=== PATIENT | female | born 1975 | race Caucasian/White ===

== ENCOUNTER 2016-11-03 22:02 | Inpatient (IN) ==
[2016-11-03 23:10] LABS: Basophils % 0.3 %; Eosinophils # 0.2 K/mcL (0.0-0.6); Eosinophils % 2.9 %; Hematocrit 28.9 % (35.3-44.9); Hemoglobin 8.8 g/dL (11.5-15.4); Immature Granulocytes % 0.3 % (0-4); Lymphocytes # 1.4 K/mcL (0.6-4.6); Lymphocytes % 19.5 %; Mean Corpuscular HGB Conc 30.4 g/dL (31.6-35.5); Mean Corpuscular Hemoglobin 28.5 pg (28.0-33.3); Mean Corpuscular Volume 93.5 fL (83.0-100.0); Mean Platelet Volume 8.7 fL (9.4-12.4); Monocytes # 0.7 K/mcL (0.0-1.3); Monocytes % 10.5 %; Neutrophils # 4.6 K/mcL (1.6-8.9); Platelet Count 463 K/mcL (140-400); Red Blood Count 3.09 M/mcL (3.82-4.97); Red Cell Distribution Width 15.4 % (11.5-14.5); Segmented Neutrophils % 66.5 %
[2016-11-03 23:17] LABS: Bilirubin,Urine Negative (Negative); Blood,Urine Moderate (Negative); Clarity,Urine Cloudy (Clear); Color,Urine Yellow (Yellow); Glucose,Urine (UA) Normal (Normal); Ketones,Urine Negative (Negative); Leukocyte Esterase,Urine Large (Negative); Nitrite,Urine Positive (Negative); Protein,Urine 100 mg/dL (Neg-Trace); Specific Gravity,Urine 1.029 (1.010-1.025); Urobilinogen,Urine Normal (Normal)
[2016-11-03 23:19] LABS: Bacteria,Urine Many per hpf (None-Few); Hyaline Casts,Urine None Seen per lpf (None-Few); Squamous Epithelial Cell,Urine Moderate per lpf (None-Few); WBC,Urine TNTC per hpf (0-3)
[2016-11-03 23:21] LABS: BUN/Creatinine Ratio 14 (6-26); Blood Urea Nitrogen 16 mg/dL (7-20); Calcium 9.1 mg/dL (8.6-10.8); Carbon Dioxide 26 mEq/L (19-29); Chloride 101 mEq/L (98-109); Glucose 105 mg/dL (70-99); Osmolality,Calculated 286 (280-300); Potassium 3.4 mEq/L (3.5-4.5); Sodium 137 mEq/L (136-145); eGFR For African Americans > 60 (> 60); eGFR For Non-African Americans 52 (> 60)
[2016-11-03 23:36] LABS: Mucus,Urine Few (Few)
[2016-11-03] MEDS ORDERED: *HR* Morphine 2 MG/ML SYRINGE IVP ONE (23:46)
[2016-11-03] MEDS ORDERED: Ondansetron 4 MG/2 ML VIAL IVP ONE (23:46)
--- NOTE | 2016-11-04 00:56 | Emergency Department Note ---
Disposition Clinical Impression: Flank pain Fever Qualifiers: Fever type: unspecified Qualified Code(s): R50.9 - Fever, unspecified UTI (urinary tract infection) Qualifiers: Urinary tract infection type: site unspecified Hematuria presence: without hematuria Qualified Code(s): N39.0 - Urinary tract infection, site not specified Disposition: Admitted As Inpatient Condition: Good Referrals: NONE,PCP [Primary Care Provider] - Forms: Work/School Release, ED Satisfaction Letter Fever HPI - General Chief Complaint: ED General Medical Stated Complaint: L flank drain site infected Time Seen by Provider: 11/03/16 22:43 Source: patient, family Mode of arrival: private vehicle Limitations: no limitations Nursing Notes Reviewed: Yes Vital Signs Reviewed: Yes - History of Present Illness Pt Subjective Complaint: fever, malaise, other (left flank pain) Onset (ago): day(s) Temperature Source: subjective Context: recent procedure/surgery (bilateral nephrostomy tubes placed in September) , on chemotherapy Associated symptoms: Reports: other (left flank pain). Denies: chills, rigors, myalgias, headache, rhinorrhea, nasal congestion, sore throat, stiff neck, cough , chest pain, dyspnea, abdominal pain, nausea, vomiting, diarrhea, dysuria, rash , altered mental status, night sweats, weight loss Improves with: nothing Worsens with: nothing Treatments prior to arrival fever: none - Related Data Home Medications Medication Instructions Recorded Confirmed No Known Home Drugs 11/04/16 11/04/16 Allergies Allergy/AdvReac Type Severity Reaction Status Date / Time No Known Allergies Allergy Verified 10/31/16 08:38 All systems ED: reviewed and negative except as stated. Constitutional: Reports: fever. Denies: chills, weakness, night sweats Cardiovascular: Denies: chest pain, palpitations, dyspnea on exertion Respiratory: Denies: cough, dyspnea, wheezes Gastrointestinal: Denies: abdominal pain, nausea, vomiting, diarrhea, constipation Genitourinary: Reports: other (increased sediment in nephrostomy tube of left kindey). 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 Absent: scleral icterus, conjunctival injection, periorbital swelling - ENT ENT exam: mucous membranes moist - Neck Neck exam: Present: normal inspection, full ROM, trachea midline. Absent: meningismus - Chest Chest inspection: Present: normal inspection - Respiratory Respiratory exam: Present: normal lung sounds bilaterally. Absent: respiratory distress, wheezes, stridor, accessory muscle use - Cardiovascular Cardiovascular exam: Present: regular rate, normal rhythm, normal heart sounds - Abdominal Exam Abdominal exam: Present: soft, Non-Tender. Absent: distention, guarding, rebound, hyperactive bowel sounds, organomegaly, mass, pulsatile mass - Extremities Exam Extremities exam: Present: normal inspection. Absent: pedal edema - Expanded Lower Extremity Exam Gait: observed and normal - Back Exam Back exam: Present: tenderness, CVA tenderness (L), paraspinal tenderness, other (bilateral nephrostomy tubes - no purulent drainage or erythema). Absent : muscle spasm, vertebral tenderness, sciatic notch tenderness (R), sciatic notch tenderness (L) - Neurological Exam Neurological exam: Present: alert, oriented X3, CN II-XII intact, normal gait - Psychiatric Psychiatric exam: Present: normal affect, normal mood - Skin Skin exam: Present: warm, dry, intact, normal color Course Course Narrative: Patient presents with flank pain and increased sediment in the urine of the left nephrostomy tube along with a fever and generalized malaise for over a day. 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 On exam, she is currently afebrile and does not appear toxic. She is resting but. She has had no nausea or vomiting. Urinalysis shows too numerous to count white blood cells , however, the sample was taken from the nephrostomy bag. Given the patient's recent placement of nephrostomy tubes along with flank pain and fever and concern for infection. Rocephin was given. Case was discussed with Dr. Boyer. She has had [id number] time with the patient and agrees with the assessment and plan to admit the patient. Vital Signs Temperature 97.7 F 11/03/16 22:23 Pulse Rate 90 11/03/16 22:23 Respiratory Rate 16 11/03/16 22:23 Blood Pressure 94/62 11/03/16 22:23 O2 Sat by Pulse Oximetry 97 11/03/16 22:23 Temperature 97.7 F 11/03/16 22:23 Pulse Rate 87 11/04/16 00:10 Respiratory Rate 18 11/04/16 00:10 Blood Pressure 97/53 11/04/16 00:10 O2 Sat by Pulse Oximetry 98 11/04/16 00:10 Oxygen Delivery Oxygen Delivery Room Air Fever - Medical Records Medical records reviewed: Yes I reviewed the patient's medical records. - Lab Data Lab results reviewed: Yes I reviewed the patient's lab results. Lab results narrative: Laboratory Last Values WBC 6.1 K/mcL (4.3-11.1) 11/04/16 04:50 RBC 3.13 M/mcL (3.82-4.97) L 11/04/16 04:50 Hgb 9.1 g/dL (11.5-15.4) L 11/04/16 04:50 Hct 29.7 % (35.3-44.9) L 11/04/16 04:50 MCV 94.9 fL (83.0-100.0) 11/04/16 04:50 MCH 29.1 pg (28.0-33.3) 11/04/16 04:50 MCHC 30.6 g/dL (31.6-35.5) L 11/04/16 04:50 RDW 15.5 % (11.5-14.5) H 11/04/16 04:50 Plt Count 447 K/mcL (140-400) H 11/04/16 04:50 MPV 9.2 fL (9.4-12.4) L 11/04/16 04:50 Immature Gran % 0.2 % (0-4) 11/04/16 04:50 Seg Neutrophils % 53.3 % 11/04/16 04:50 Lymphocytes % 29.9 % 11/04/16 04:50 Monocytes % 12.5 % 11/04/16 04:50 Eosinophils % 3.4 % 11/04/16 04:50 Basophils % 0.7 % 11/04/16 04:50 Neutrophils # 3.3 K/mcL (1.6-8.9) 11/04/16 04:50 Lymphocytes # 1.8 K/mcL (0.6-4.6) 11/04/16 04:50 Monocytes # 0.8 K/mcL (0.0-1.3) 11/04/16 04:50 Eosinophils # 0.2 K/mcL (0.0-0.6) 11/04/16 04:50 Basophils # 0.0 K/mcL (0.0-0.2) 11/04/16 04:50 Sodium 139 mEq/L (136-145) 11/04/16 04:50 Potassium 3.5 mEq/L (3.5-4.5) 11/04/16 04:50 Chloride 105 mEq/L (98-109) 11/04/16 04:50 Carbon Dioxide 27 mEq/L (19-29) 11/04/16 04:50 BUN 14 mg/dL (7-20) 11/04/16 04:50 Creatinine 1.03 mg/dL (0.57-1.11) 11/04/16 04:50 Est GFR ( Amer) > 60 (> 60) 11/04/16 04:50 Est GFR (Non-Af Amer) 59 (> 60) L 11/04/16 04:50 BUN/Creatinine Ratio 14 (6-26) 11/04/16 04:50 Glucose 77 mg/dL (70-99) 11/04/16 04:50 Calculated Osmolality 287 (280-300) 11/04/16 04:50 Lactic Acid 0.6 mmol/L (0.5-2.2) 11/04/16 04:50 Calcium 8.6 mg/dL (8.6-10.8) 11/04/16 04:50 Urine Color Yellow (Yellow) 11/03/16 23:04 Urine Clarity Cloudy (Clear) A 11/03/16 23:04 Urine pH 6.0 pH Units (5.0-8.0) 11/03/16 23:04 Ur Specific [place] 1.029 (1.010-1.025) H 11/03/16 23:04 Urine Protein 100 mg/dL (Neg-Trace) H 11/03/16 23:04 Urine Glucose (UA) Normal mg/dL (Normal) 11/03/16 23:04 Urine Ketones Negative mg/dL (Negative) 11/03/16 23:04 Urine Blood Moderate (Negative) H 11/03/16 23:04 Urine Nitrite Positive (Negative) A 11/03/16 23:04 Urine Bilirubin Negative (Negative) 11/03/16 23:04 Urine Urobilinogen Normal mg/dL (Normal) 11/03/16 23:04 Ur Leukocyte Esterase Large (Negative) H 11/03/16 23:04 Urine Microscopic RBC 5-15 per hpf (0-3) H 11/03/16 23:04 Urine Microscopic WBC TNTC per hpf (0-3) H 11/03/16 23:04 Ur Squamous Epith Cells Moderate per lpf (None-Few) H 11/03/16 23:04 Urine Bacteria Many per hpf (None-Few) H 11/03/16 23:04 Hyaline Casts None Seen per lpf (None-Few) 11/03/16 23:04 Urine Mucus Few (Few) 11/03/16 23:04 Ur Culture Indicated? YES (NO) A 11/03/16 23:04 Result diagrams: 11/03/16 23:01 11/03/16 23:01 Lab Results 11/03/16 11/03/16 11/03/16 Range/Units 23:01 23:01 23:01 WBC 7.0 (4.3-11.1) K/mcL RBC 3.09 L (3.82-4.97) M/mcL Hgb 8.8 L (11.5-15.4) g/dL Hct 28.9 L (35.3-44.9) % MCV 93.5 (83.0-100.0) fL MCH 28.5 (28.0-33.3) pg MCHC 30.4 L (31.6-35.5) g/dL RDW 15.4 H (11.5-14.5) % Plt Count 463 H (140-400) K/mcL MPV 8.7 L (9.4-12.4) fL Immature Gran % 0.3 (0-4) % Seg Neutrophils % 66.5 % Lymphocytes % 19.5 % Monocytes % 10.5 % Eosinophils % 2.9 % Basophils % 0.3 % Neutrophils # 4.6 (1.6-8.9) K/mcL Lymphocytes # 1.4 (0.6-4.6) K/mcL Monocytes # 0.7 (0.0-1.3) K/mcL Eosinophils # 0.2 (0.0-0.6) K/mcL Basophils # 0.0 (0.0-0.2) K/mcL Sodium 137 (136-145) mEq/L Potassium 3.4 L (3.5-4.5) mEq/L Chloride 101 (98-109) mEq/L Carbon Dioxide 26 (19-29) mEq/L BUN 16 (7-20) mg/dL Creatinine 1.15 H (0.57-1.11) mg/dL Est GFR ( Amer) > 60 (> 60) Est GFR (Non-Af Amer) 52 L (> 60) BUN/Creatinine Ratio 14 (6-26) Glucose 105 H (70-99) mg/dL Calculated Osmolality 286 (280-300) Lactic Acid 0.7 (0.5-2.2) mmol/L Calcium 9.1 (8.6-10.8) mg/dL Urine Color (Yellow) Urine Clarity (Clear) Urine pH (5.0-8.0) pH Units Ur Specific [place] (1.010-1.025) Urine Protein (Neg-Trace) mg/dL Urine Glucose (UA) (Normal) mg/dL Urine Ketones (Negative) mg/dL Urine Blood (Negative) Urine Nitrite (Negative) Urine Bilirubin (Negative) Urine Urobilinogen (Normal) mg/dL Ur Leukocyte Esterase (Negative) Urine Microscopic RBC (0-3) per hpf Urine Microscopic WBC (0-3) per hpf Ur Squamous Epith Cells (None-Few) per lpf Urine Bacteria (None-Few) per hpf Hyaline Casts (None-Few) per lpf Urine Mucus (Few) Ur Culture Indicated? (NO) 11/03/16 Range/Units 23:04 WBC (4.3-11.1) K/mcL RBC (3.82-4.97) M/mcL Hgb (11.5-15.4) g/dL Hct (35.3-44.9) % MCV (83.0-100.0) fL MCH (28.0-33.3) pg MCHC (31.6-35.5) g/dL RDW (11.5-14.5) % Plt Count (140-400) K/mcL MPV (9.4-12.4) fL Immature Gran % (0-4) % Seg Neutrophils % % Lymphocytes % % Monocytes % % Eosinophils % % Basophils % % Neutrophils # (1.6-8.9) K/mcL Lymphocytes # (0.6-4.6) K/mcL Monocytes # (0.0-1.3) K/mcL Eosinophils # (0.0-0.6) K/mcL Basophils # (0.0-0.2) K/mcL Sodium (136-145) mEq/L Potassium (3.5-4.5) mEq/L Chloride (98-109) mEq/L Carbon Dioxide (19-29) mEq/L BUN (7-20) mg/dL Creatinine (0.57-1.11) mg/dL Est GFR ( Amer) (> 60) Est GFR (Non-Af Amer) (> 60) BUN/Creatinine Ratio (6-26) Glucose (70-99) mg/dL Calculated Osmolality (280-300) Lactic Acid (0.5-2.2) mmol/L Calcium (8.6-10.8) mg/dL Urine Color Yellow (Yellow) Urine Clarity Cloudy A (Clear) Urine pH 6.0 (5.0-8.0) pH Units Ur Specific [place] 1.029 H (1.010-1.025) Urine Protein 100 H (Neg-Trace) mg/dL Urine Glucose (UA) Normal (Normal) mg/dL Urine Ketones Negative (Negative) mg/dL Urine Blood Moderate H (Negative) Urine Nitrite Positive A (Negative) Urine Bilirubin Negative (Negative) Urine Urobilinogen Normal (Normal) mg/dL Ur Leukocyte Esterase Large H (Negative) Urine Microscopic RBC 5-15 H (0-3) per hpf Urine Microscopic WBC TNTC H (0-3) per hpf Ur Squamous Epith Cells Moderate H (None-Few) per lpf Urine Bacteria Many H (None-Few) per hpf Hyaline Casts None Seen (None-Few) per lpf Urine Mucus Few (Few) Ur Culture Indicated? YES A (NO) - Radiology Data Radiology results reviewed: Yes I reviewed the patient's radiology results. Abdomen/Pelvis CT 11/04/16 00:52 IMPRESSION: Intact nephrostomy tubes in appropriate position, with improved right-sided hydronephrosis compared to the previous examination. There is a nonobstructive calculus in the lower pole the left kidney. The cervical mass is seen in the pelvis, though better identified on the recent MRI study performed at an outside hospital. No other acute process. D/ / Rock Meraz MD / Rock Meraz MD Interpreting Provider: Rock Meraz MD
[2016-11-04] MEDS ORDERED: 0.9 % Sodium Chloride 1,000 ML IVC ONE (02:38)
--- NOTE | 2016-11-04 03:15 | Emergency Department Note ---
Disposition Clinical Impression: Complicated UTI (urinary tract infection) Disposition: Admitted As Inpatient Time of Disposition: 04:20 General Adult HPI - General Chief complaint: ED General Medical Stated complaint: L flank drain site infected Time Seen by Provider: 11/03/16 22:43 Source: patient, family Mode of arrival: private vehicle Limitations: no limitations - History of Present Illness Pain Scale: 9 - Related Data Home Medications Medication Instructions Recorded Confirmed No Known Home Drugs 11/04/16 11/04/16 Allergies Allergy/AdvReac Type Severity Reaction Status Date / Time No Known Allergies Allergy Verified 10/31/16 08:38 Past Medical History - Past Medical History Medical history: Reports: no medical history, cancer, other Psychiatric history: Reports: no psych history 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 - Social History Smoking Status: Current every day smoker Smokeless Tobacco Status: No Alcohol use: Reports: none Drug use: Reports: marijuana Physical Exam - General Limitations: no limitations General appearance: alert, in no apparent distress Course Vital Signs Temperature 97.7 F 11/03/16 22:23 Pulse Rate 90 11/03/16 22:23 Respiratory Rate 16 11/03/16 22:23 Blood Pressure 94/62 11/03/16 22:23 O2 Sat by Pulse Oximetry 97 11/03/16 22:23 Temperature 98.1 F 11/04/16 04:13 Pulse Rate 90 11/04/16 04:13 Respiratory Rate 16 11/04/16 04:13 Blood Pressure 116/75 11/04/16 04:13 O2 Sat by Pulse Oximetry 94 11/04/16 04:13 Oxygen Delivery Oxygen Delivery Room Air Medical Decision Making - Lab Data Result diagrams: 11/03/16 23:01 11/03/16 23:01 Lab Results 11/03/16 11/03/16 11/03/16 Range/Units 23:01 23:01 23:01 WBC 7.0 (4.3-11.1) K/mcL RBC 3.09 L (3.82-4.97) M/mcL Hgb 8.8 L (11.5-15.4) g/dL Hct 28.9 L (35.3-44.9) % MCV 93.5 (83.0-100.0) fL MCH 28.5 (28.0-33.3) pg MCHC 30.4 L (31.6-35.5) g/dL RDW 15.4 H (11.5-14.5) % Plt Count 463 H (140-400) K/mcL MPV 8.7 L (9.4-12.4) fL Immature Gran % 0.3 (0-4) % Seg Neutrophils % 66.5 % Lymphocytes % 19.5 % Monocytes % 10.5 % Eosinophils % 2.9 % Basophils % 0.3 % Neutrophils # 4.6 (1.6-8.9) K/mcL Lymphocytes # 1.4 (0.6-4.6) K/mcL Monocytes # 0.7 (0.0-1.3) K/mcL Eosinophils # 0.2 (0.0-0.6) K/mcL Basophils # 0.0 (0.0-0.2) K/mcL Sodium 137 (136-145) mEq/L Potassium 3.4 L (3.5-4.5) mEq/L Chloride 101 (98-109) mEq/L Carbon Dioxide 26 (19-29) mEq/L BUN 16 (7-20) mg/dL Creatinine 1.15 H (0.57-1.11) mg/dL Est GFR ( Amer) > 60 (> 60) Est GFR (Non-Af Amer) 52 L (> 60) BUN/Creatinine Ratio 14 (6-26) Glucose 105 H (70-99) mg/dL Calculated Osmolality 286 (280-300) Lactic Acid 0.7 (0.5-2.2) mmol/L Calcium 9.1 (8.6-10.8) mg/dL Urine Color (Yellow) Urine Clarity (Clear) Urine pH (5.0-8.0) pH Units Ur Specific [place] (1.010-1.025) Urine Protein (Neg-Trace) mg/dL Urine Glucose (UA) (Normal) mg/dL Urine Ketones (Negative) mg/dL Urine Blood (Negative) Urine Nitrite (Negative) Urine Bilirubin (Negative) Urine Urobilinogen (Normal) mg/dL Ur Leukocyte Esterase (Negative) Urine Microscopic RBC (0-3) per hpf Urine Microscopic WBC (0-3) per hpf Ur Squamous Epith Cells (None-Few) per lpf Urine Bacteria (None-Few) per hpf Hyaline Casts (None-Few) per lpf Urine Mucus (Few) Ur Culture Indicated? (NO) 11/03/16 Range/Units 23:04 WBC (4.3-11.1) K/mcL RBC (3.82-4.97) M/mcL Hgb (11.5-15.4) g/dL Hct (35.3-44.9) % MCV (83.0-100.0) fL MCH (28.0-33.3) pg MCHC (31.6-35.5) g/dL RDW (11.5-14.5) % Plt Count (140-400) K/mcL MPV (9.4-12.4) fL Immature Gran % (0-4) % Seg Neutrophils % % Lymphocytes % % Monocytes % % Eosinophils % % Basophils % % Neutrophils # (1.6-8.9) K/mcL Lymphocytes # (0.6-4.6) K/mcL Monocytes # (0.0-1.3) K/mcL Eosinophils # (0.0-0.6) K/mcL Basophils # (0.0-0.2) K/mcL Sodium (136-145) mEq/L Potassium (3.5-4.5) mEq/L Chloride (98-109) mEq/L Carbon Dioxide (19-29) mEq/L BUN (7-20) mg/dL Creatinine (0.57-1.11) mg/dL Est GFR ( Amer) (> 60) Est GFR (Non-Af Amer) (> 60) BUN/Creatinine Ratio (6-26) Glucose (70-99) mg/dL Calculated Osmolality (280-300) Lactic Acid (0.5-2.2) mmol/L Calcium (8.6-10.8) mg/dL Urine Color Yellow (Yellow) Urine Clarity Cloudy A (Clear) Urine pH 6.0 (5.0-8.0) pH Units Ur Specific [place] 1.029 H (1.010-1.025) Urine Protein 100 H (Neg-Trace) mg/dL Urine Glucose (UA) Normal (Normal) mg/dL Urine Ketones Negative (Negative) mg/dL Urine Blood Moderate H (Negative) Urine Nitrite Positive A (Negative) Urine Bilirubin Negative (Negative) Urine Urobilinogen Normal (Normal) mg/dL Ur Leukocyte Esterase Large H (Negative) Urine Microscopic RBC 5-15 H (0-3) per hpf Urine Microscopic WBC TNTC H (0-3) per hpf Ur Squamous Epith Cells Moderate H (None-Few) per lpf Urine Bacteria Many H (None-Few) per hpf Hyaline Casts None Seen (None-Few) per lpf Urine Mucus Few (Few) Ur Culture Indicated? YES A (NO) Attestation Statement - Attestation Attestation: For this encounter, I have reviewed the STOCK CLERK or PA documentation, treatment plan, and medical decision making; and I have had face to face time with this patient. 41 year old female with bilateral nephrostomy tubes and been experincing increased pain with nausea/vomitting appears to have a UTI, CT scan does not show any obstruction or pyelonpehritis. WE will admit to medicine due to hypotension and UTI.
[2016-11-04] MEDS ORDERED: *HR* Morphine 2 MG/ML SYRINGE IVP PRN (03:58)
[2016-11-04] MEDS ORDERED: Naloxone 0.4 MG/ML INJ IVP PRN (03:58)
[2016-11-04] MEDS ORDERED: Ondansetron 4 MG/2 ML VIAL IVP PRN (03:58)
[2016-11-04] MEDS ORDERED: 0.9 % Sodium Chloride 1,000 ML IVC SCH ×2 (04:00→10:25)
--- NOTE | 2016-11-04 04:02 | Internal Med History&Physical ---
Date of Encounter: 11/04/16 Time of Encounter: 04:02 Assessment and Plan (1) Complicated UTI (urinary tract infection) Current visit: Yes Status: Acute Urine cultures pending. Empiric IV Rocephin. IV fluids (2) Nephrolithiasis Current visit: Yes Status: Acute Low suspicion symptoms is related to the left kidney stone. We will empirically treat with antibiotics. If persistent symptoms on therapy we will consider interval urology consult (3) Cervix cancer Current visit: No Status: Acute Pending treatment with oncology and radiation currently Qualifiers: Qualified Code(s): C53.9 - Malignant neoplasm of cervix uteri, unspecified Internal Medicine - H&P: HPI Chief complaint: Left flank pain, subjective fevers History of present illness: Ms. Grossman is a 41 year old female with hx of cervical ca with reported vesico- cervical fistula with b/l neph tube who presents with 3 days hx of progressive left flank pain associated with subjective, low grade fevers. Pain described as sharp, 10/10, localized in the left flank. Denies nausea/emesis. Urine in the bag describes as dirty with prelim UA with pyuria. Given risk factor, she was empirically treated with IV rocephin. In regards to her hx, she was recently dx with cervical cancer approx 1 month ago. 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 She is established with Dr Lion jett at [facility] and is pending chemo-RT from around -Oct later in the month CT/CT abd pelvis wo no iv no oral IMPRESSION: Intact nephrostomy tubes in appropriate position, with improved right-sided hydronephrosis compared to the previous examination. There is a nonobstructive calculus in the lower pole the left kidney. The cervical mass is seen in the pelvis, though better identified on the recent MRI study performed at an outside hospital. No other acute process. Past Med Surg Social Fam HX - Past Medical History Medical history: no medical history, cancer, other Psychiatric history: no psych history - Social History Smoking Status: Current every day smoker Smokeless Tobacco Status: No Alcohol use: none Drug use: marijuana Internal Medicine - H&P: Meds No Known Home Drugs 11/04/16 [History] 3 Allergy/AdvReac Type Severity Reaction Status Date / Time No Known Allergies Allergy Verified 10/31/16 08:38 All Systems PM: A 10-system review of systems was performed and is negative for pertinent findings except as documented above in the HPI. Review of systems: ROS 14 point review of systems reviewed as best as possible given presentation. Pertinent positive or negative as per HPI or otherwise reviewed as negative - Constitutional Vitals: Temp Pulse Resp BP Pulse Ox 97.7 F 85 14 100/79 98 11/03/16 22:23 11/04/16 02:59 11/04/16 02:59 11/04/16 02:59 11/04/16 02:59 Exam: General - AAO x 3 Psych - Appropriate affect/speech. No agitation Eyes - JESUS MANUEL. Eye lids intact. No scleral icterus Heart - Sinus. RRR. S1 and S2 present. No added HS/murmurs appreciated. No elevated JVD appreciated. No calf swellings/erythema Lung - Adequate air entry b/l, No crackles/wheezes appreciated GI - Soft, non-tender. No hepatosplenomegaly/ascites. BS+ - bilateral neck tube, left-sided flank pain Skin - Intact. No rash/petechiae/ecchymosis. Warm extremities MSK - Joints with normal ROM. No joint swellings Internal Med - H&P Results - Labs CBC & Chem 7: 11/03/16 23:01 11/03/16 23:01
[2016-11-04 05:11] LABS: Basophils % 0.7 %; Eosinophils # 0.2 K/mcL (0.0-0.6); Eosinophils % 3.4 %; Hematocrit 29.7 % (35.3-44.9); Hemoglobin 9.1 g/dL (11.5-15.4); Immature Granulocytes % 0.2 % (0-4); Lymphocytes # 1.8 K/mcL (0.6-4.6); Lymphocytes % 29.9 %; Mean Corpuscular HGB Conc 30.6 g/dL (31.6-35.5); Mean Corpuscular Hemoglobin 29.1 pg (28.0-33.3); Mean Corpuscular Volume 94.9 fL (83.0-100.0); Mean Platelet Volume 9.2 fL (9.4-12.4); Monocytes # 0.8 K/mcL (0.0-1.3); Monocytes % 12.5 %; Neutrophils # 3.3 K/mcL (1.6-8.9); Platelet Count 447 K/mcL (140-400); Red Blood Count 3.13 M/mcL (3.82-4.97); Red Cell Distribution Width 15.5 % (11.5-14.5); Segmented Neutrophils % 53.3 %
[2016-11-04 05:21] LABS: BUN/Creatinine Ratio 14 (6-26); Blood Urea Nitrogen 14 mg/dL (7-20); Calcium 8.6 mg/dL (8.6-10.8); Carbon Dioxide 27 mEq/L (19-29); Chloride 105 mEq/L (98-109); Glucose 77 mg/dL (70-99); Osmolality,Calculated 287 (280-300); Potassium 3.5 mEq/L (3.5-4.5); Sodium 139 mEq/L (136-145); eGFR For African Americans > 60 (> 60); eGFR For Non-African Americans 59 (> 60)
[2016-11-04] MEDS ORDERED: *HR* Enoxaparin 40 MG/0.4 ML SYRINGE SQ SCH (06:00)
--- NOTE | 2016-11-04 10:20 | Event Note ---
Date of Encounter: 11/04/16 Time of Encounter: 09:58 Patient is a 41y/o female with PMH of cervical ca with vesico-cervical fistula s /p b/l nephrostomy tubes admitted for complicated UTI. Initial presentation was concerning for nephrolithiasis, however during my evaluation this morning, patient reports of feeling better since her arrival to the hospital. Denies any flank pain at this time. Tolerating PO intake. Will continue IV abx, and follow up blood and urine cultures
[2016-11-05 05:24] VITALS: BP 95/55
== END 2016-11-04 17:32 | disposition left against medical advice (07) | DRG 463 ==
LOC: 3ANU 22:02 → EMEROO 22:02 → 3ANU 11-04 04:04 → SUATTDRO 11-04 04:29
PROVIDERS: ADMIT Family Medicine; ATTEND Internal Medicine